=== PATIENT | female | born 1985 | race Caucasian/White ===

== ENCOUNTER 2021-07-03 11:36 | Emergency (ER) | payer MEDICAID, SELFPAY ==
[2021-07-03 11:42] VITALS: BP 126/67; PULSE 76; RESP 18; TEMP 36.1; O2SAT 96; BMI 30.2
[2021-07-03 12:11] LABS: Appearance Urine CLOUDY; Color Urine YELLOW; Glucose Urine UA NEG (NEG); Leukocyte Esterase Urine NEG (NEG); Nitrite Urine NEG (NEG); Urine Blood NEG (NEG); Urine Ketones NEG (NEG); Urine Protein NEG (NEG-TRACE)
[2021-07-03] MEDS: diphenhydrAMINE HCL 25 MG TABLET PO (12:19)
[2021-07-03] MEDS: Famotidine 20 MG TABLET PO (12:19)
[2021-07-03 12:22] LABS: UPreg QC Valid YES; Urine Pregnancy NEGATIVE (NEGATIVE)
[2021-07-03] MEDS: Acetaminophen 325 MG TABLET 650 MG PO (12:27)
--- NOTE | 2021-07-03 12:28 | ED.GENADULT ---
HPI - General Adult General Chief complaint: General Medical Stated complaint: bed bug bites Time Seen by Provider: 07/03/21 11:42 Source: patient Mode of arrival: ambulatory Limitations: no limitations History of Present Illness HPI narrative: 35-year-old female who is currently residing at a [place] [facility] presenting to the ED with concerns for [place]bugs [place] [facility] [place] [facility]. She reports that 1 of the other patients has a daughter and a who visited a few days ago and they had bedbugs and then she went into the other patient's room without knowing and since then she has been itchy. She reports that she believes it is bedbugs. She also has a separate complaint of white milky non odorous discharge over the past few days. She reports she is not sexually active in months. She denies any thoughts of STDs. She denies any other symptoms complaints or concerns at this time. Related Data Previous Rx's Medication Instructions Recorded diphenhydramine HCl 25 mg tablet 50 mg PO TID PRN #10 tab 07/03/21 (Benadryl Allergy) famotidine 20 mg tablet (Pepcid) 20 mg PO BID #10 tab 07/03/21 fluconazole 150 mg tablet 150 mg PO Q3D #2 tab 07/03/21 (Diflucan) hydrocortisone 2.5 % topical 1 appl TOPICAL QD-TID PRN #454 g 07/03/21 ointment metronidazole 500 mg tablet 500 mg PO BID 7 Days #14 tab 07/03/21 (Flagyl) Allergies Allergy/AdvReac Type Severity Reaction Status Date / Time clindamycin Allergy Facial Verified 07/03/21 11:49 Swelling hydromorphone [From Dilaudid] Allergy Eye Verified 07/03/21 11:49 Swelling ibuprofen [From Motrin] Allergy Facial Verified 07/03/21 12:08 Swelling Penicillins Allergy Facial Verified 07/03/21 11:49 Swelling Review of Systems Review of Systems: Constitutional : No Fever, No Chills , no body aches, no recent illness Head/Face: No facial swelling, No facial redness ENT/Mouth : No oral/throat swelling, No Hoarseness, No Swallowing Difficulty Eyes: No Eye Pain, No Swelling, No Redness Cardiovascular : No Chest Pain, No SOB, No palpitations Respiratory : No Cough, No Sputum, No Wheezing, No Smoke Exposure, No Dyspnea Gastrointestinal : No Nausea, No Vomiting, No Diarrhea, No abdominal Pain Genitourinary : No Dysuria, No Urinary Frequency, No Hematuria, positive abnormal discharge, Musculoskeletal : No joint pain, No Myalgias, No Joint Swelling Skin : No Skin Lesions, positive rash Neuro : No Weakness, No Numbness, No Headache, No dizziness, No tingling Psych : No Anxiety/Panic, No Depression Heme/Lymph: No Bruising, No Lymphadenopathy Endocrine : No Polyuria, No Polydipsia Denies changes in lotions or detergents. Denies new medications or any changes in medications. Denies drainage from rash. Denies any recent sick contacts or recent travel. Yes all other systems are reviewed and are negative [facility] Past Medical History Attestation statement: The following information was validated with the patient. Medical History Anxiety Asthma Depression Surgical History H/O Spinal surgery History of hip surgery Social History Social History Advance Directives: No Advance Directives Information Provided: Yes Patient : No Physical Exam Vital Signs: Vital Signs: Last Vital Signs Temp 96.9 F 07/03/21 11:42 Pulse 76 07/03/21 11:42 Resp 18 07/03/21 11:42 BP 126/67 07/03/21 11:42 Pulse Ox 96 07/03/21 11:42 Body Mass Index 30.2 vital signs have been reviewed as normal and appeared to be correct. Blood pressure normal. Heart rate normal. Respiration rate normal. Temperature normal. Oxygen saturation normal. Appearance: Alert. Oriented X3. No acute distress. Head: Normal external exam. Normocephalic. Atraumatic. No Howell signs noted. No raccoon eyes noted Eyes: PERRLA. EOMI. Conjunctiva and sclera normal. Eyelids normal. ENT: EAC normal. TM's Normal. Pharynx normal. Uvula midline. Moist mucous membranes. No trismus noted. No drooling noted. No muffled voice noted. Neck: Normal inspection. Neck supple. FROM. No adenopathy. Thyroid Normal. No meningeal signs. No neck mass noted. CVS: Normal heart rate and rhythm. Heart sound normal. No murmurs noted. Pulses normal throughout. Respiratory: No respiratory distress. Painless inspiration. Breath sounds normal. No wheezes/rales/rhonchi noted. Chest nontender. No accessory muscle usage noted or decreased air movement noted. Abdomen: Soft and nontender. Bowel sounds normal in all 4 quadrants. No distention noted. No organomegaly noted. No visible injury noted. : Supervised by KAYLIN Harmon. Normal external appearance of urethra. No lesions/lacerations or tenderness noted. Speculum exam normal appearance/palpation of vagina normal. Patient has a thin white non odorous vaginal discharge. Otherwise no vaginal erythema. No foreign bodies noted. No vaginal laceration/lesions or active bleeding noted. No tissue present in vagina. No vaginal mass noted. No vaginal swelling noted. No vaginal tenderness noted. Normal appearance of cervix. Normal palpation of cervix. Cervical os is closed. No abnormal cervical discharge noted. No cervical lesion/mass. No Bartholin cyst noted. No cervical motion tenderness noted. Negative chandelier sign. Normal bimanual exam. Uterine size normal. Bladder normal to palpation. Uterine consistency normal. Normal cervical palpation. Uterine mobility normal. Uterine shape normal. Normal adnexa. Normal rectovaginal exam. Back: No CVA tenderness. Full range of motion noted. Skin: Skin warm and dry. Normal skin color. Normal skin turgor. No rashes/lesions/lacerations noted. Extremities: No lower extremity edema. Extremities exhibit normal range of motion. Extremities nontender. Neuro: Oriented X 3. No motor deficit. No sensory deficit. Reflexes normal. Course Course Course Narrative: 35-year-old female currently residing [facility] [place] [facility] presenting to the ED with complaints of possible bedbugs on my exam patient has bites and abrasion is although I do not see any bugs on the patient. I explained to her that she needs to go back to the program and they need to have professionals come in to get rid of the bedbugs if they are in the [place] [facility]. Will also treat her for yeast infection. Pending bacterial vaginosis/Trichomonas/gonorrhea chlamydia will not treat at this time for those. Along with instructions return if any new or worsening symptoms to follow up with primary care provider. Patient understands agrees with this plan. Medical Decision Making Medical Records Medical records reviewed: Yes I reviewed the patient's medical records. Lab Data Lab results reviewed: Yes I reviewed the patient's lab results. Labs: Lab Results 07/03/21 07/03/21 Range/Units 11:59 11:59 Urine Color YELLOW Urine Appearance CLOUDY Urine pH 6.0 (5.0-8.0) Ur Specific [place] 1.020 (1.005-1.025) Urine Protein NEG (NEG-TRACE) MG/DL Urine Glucose (UA) NEG (NEG) MG/DL Urine Ketones NEG (NEG) MG/DL Urine Blood NEG (NEG) Urine Nitrite NEG (NEG) Ur Leukocyte Esterase NEG (NEG) Urine Test NEGATIVE (NEGATIVE) Discharge Plan Discharge Clinical Impression: Bed bug bite, Dulce vaginitis, Bacterial vaginosis Patient Disposition: Home, Self-Care Instructions: Yeast Infection (ED), Bed Bugs (ED) Additional Instructions: You have pending lab results if any are positive you will be contacted. You have to bring in professionals to the [place] [facility] if they are bed bugs. Prescriptions: New fluconazole [Diflucan] 150 mg tablet 150 mg PO Q3D Qty: 2 RF: 0 metronidazole [Flagyl] 500 mg tablet 500 mg PO BID 7 Days Qty: 14 RF: 0 famotidine [Pepcid] 20 mg tablet 20 mg PO BID Qty: 10 RF: 0 diphenhydramine HCl [Benadryl Allergy] 25 mg tablet 50 mg PO TID PRN (Reason: allergic reaction) Qty: 10 RF: 0 hydrocortisone 2.5 % ointment 1 appl topical QD-TID PRN (Reason: skin irritation) Qty: 454 RF: 0 Referrals: Physician,Nonstaff [Primary Care Provider] - 2 days Print Language: Syriac
[2021-07-03 14:11] LABS: CT PCR NOT DETECTED (Not Detect.); NG PCR NOT DETECTED (Not Detect.)
[2021-07-04 09:36] LABS: BV Int Neg Control Negative (Negative); BV Int Pos Control Positive (Positive)
== END 2021-07-03 12:57 | disposition home or self-care (01) ==
PROVIDERS: Physician Assistant Medical; Emergency Provider Emergency Medicine
DX: N76.0 Acute vaginitis (principal); B37.3 Candidiasis of vulva and vagina; T14.8XXA Other injury of unspecified body region, initial encounter; W57.XXXA Bitten or stung by nonvenomous insect and other nonvenomous arthropods, initial encounter; Y93.9 Activity, unspecified; Y92.9 Unspecified place or not applicable; Y99.9 Unspecified external cause status; Z79.899 Other long term (current) drug therapy
CPT/HCPCS: 36415; 81003; 81025; 87480; 87491; 87510; 87591; 87660; 99283; Q0163

== ENCOUNTER 2021-07-22 17:52 | Emergency (ER) | payer MEDICAID, SELFPAY ==
[2021-07-22 18:07] VITALS: BP 124/86; BP 140/80; PULSE 50; PULSE 60; RESP 18; TEMP 37; O2SAT 100; BMI 32.1
--- NOTE | 2021-07-22 18:12 | ECG_ITS ---
Test Reason : PALPITATIONS Blood Pressure : / mmHG Vent. Rate : 050 BPM Atrial Rate : 050 BPM P-R Int : 156 ms QRS Dur : 086 ms QT Int : 460 ms P-R-T Axes : 052 039 057 degrees QTc Int : 419 ms Sinus bradycardia Possible Left atrial enlargement Abnormal ECG No previous ECGs available Referred By: Generic ED Physician Electronically Signed By:ZANDRA VILLANUEVA
--- NOTE | 2021-07-22 21:27 | ED.CHESTPAIN ---
HPI - Chest Pain General Chief Complaint: Chest Pain Stated Complaint: CHEST PAIN X2 WEEKS Time Seen by Provider: 07/22/21 21:27 Source: patient Mode of arrival: ambulatory Limitations: no limitations History of Present Illness HPI narrative: Patient with history of anxiety with recurrent chest pain complaining of chest pain for last 2 weeks off and on with increased anxiety no radiation of pain no nausea no vomiting no shortness of breath Related Data Previous Rx's Medication Instructions Recorded diphenhydramine HCl 25 mg tablet 50 mg PO TID PRN #10 tab 07/03/21 (Benadryl Allergy) famotidine 20 mg tablet (Pepcid) 20 mg PO BID #10 tab 07/03/21 fluconazole 150 mg tablet 150 mg PO Q3D #2 tab 07/03/21 (Diflucan) hydrocortisone 2.5 % topical 1 appl TOPICAL QD-TID PRN #454 g 07/03/21 ointment metronidazole 500 mg tablet 500 mg PO BID 7 Days #14 tab 07/03/21 (Flagyl) lorazepam 1 mg tablet (Ativan) 1 mg PO BEDTIME PRN #7 tab 07/22/21 Allergies Allergy/AdvReac Type Severity Reaction Status Date / Time clindamycin Allergy Facial Verified 07/03/21 11:49 Swelling hydromorphone [From Dilaudid] Allergy Eye Verified 07/03/21 11:49 Swelling ibuprofen [From Motrin] Allergy Facial Verified 07/03/21 12:08 Swelling Penicillins Allergy Facial Verified 07/03/21 11:49 Swelling Review of Systems Review of Systems: Yes all other systems are reviewed and are negative PMFSH Past Medical History Medical History Anxiety Asthma Depression Surgical History H/O Spinal surgery History of hip surgery Social History Social History Advance Directives: No Advance Directives Information Provided: No Patient : No Physical Exam Vital Signs: Vital Signs: Last Vital Signs Temp 98.6 F 07/22/21 18:07 Pulse 50 07/22/21 18:07 Resp 18 07/22/21 18:07 BP 124/86 07/22/21 18:07 Pulse Ox 100 07/22/21 18:07 Body Mass Index 32.1 Appearance: Alert. Oriented X3. No acute distress. Anxious Eyes: PERRLA, No Nystagmus ENT: Pharynx normal. Oral Mucosa moist Neck: Normal inspection. Neck supple. CVS: Normal heart rate and rhythm. Pulses normal. Respiratory: No respiratory distress. Equal air entry bilateral, no wheezing/rales/rhonchi Abdomen: Soft and nontender. Bowel sounds are present, no mass palpable, no CVA tenderness Skin: Skin warm and dry. Normal skin color. Normal skin turgor. Extremities: No lower extremity edema. No calf tenderness Neuro: Oriented X 3. No motor deficit. No sensory deficit.No cerebellar signs , cranial nerves II-XII intact MDM - Chest Pain ECG Data ECG #1: Attestation: I personally reviewed and interpreted this ECG as follows: Interpretation: Sinus bradycardia heart rate 50 beats per minute normal intervals normal axis no acute ST T wave changes impression no ischemia Discharge Plan Discharge Clinical Impression: Atypical chest pain, Anxiety Patient Disposition: Home, Self-Care Instructions: Chest Pain (ED), Anxiety (ED) Additional Instructions: your chest pain is from anxiety Take medication as prescribed and follow with PCP/therapist Prescriptions: New lorazepam [Ativan] 1 mg tablet 1 mg PO BEDTIME PRN (Reason: anxiety) Qty: 7 RF: 0 No Action fluconazole [Diflucan] 150 mg tablet 150 mg PO Q3D Qty: 2 RF: 0 metronidazole [Flagyl] 500 mg tablet 500 mg PO BID 7 Days Qty: 14 RF: 0 famotidine [Pepcid] 20 mg tablet 20 mg PO BID Qty: 10 RF: 0 diphenhydramine HCl [Benadryl Allergy] 25 mg tablet 50 mg PO TID PRN (Reason: allergic reaction) Qty: 10 RF: 0 hydrocortisone 2.5 % ointment 1 appl topical QD-TID PRN (Reason: skin irritation) Qty: 454 RF: 0 Stand Alone Forms: Work/School Release Interventions: ED Discharge Assessment Last Done: 07/22/21 21:56 Discharge Date/Time: 07/22/21 22:10
[2021-07-22] MEDS: LORazepam 1 MG TABLET PO (22:06)
== END 2021-07-22 22:10 | disposition home or self-care (01) ==
PROVIDERS: Emergency Provider Internal Medicine
DX: R07.9 Chest pain, unspecified (principal); R06.02 Shortness of breath; F41.1 Generalized anxiety disorder; F43.0 Acute stress reaction; Z79.899 Other long term (current) drug therapy
CPT/HCPCS: 93005; 99283

== ENCOUNTER 2021-07-31 12:03 | Emergency (ER) | payer MEDICAID, SELFPAY ==
--- NOTE | 2021-07-31 | ECG_ITS ---
Test Reason : BASELINE Blood Pressure : / mmHG Vent. Rate : 081 BPM Atrial Rate : 081 BPM P-R Int : 158 ms QRS Dur : 084 ms QT Int : 390 ms P-R-T Axes : 058 039 055 degrees QTc Int : 453 ms Normal sinus rhythm Possible Left atrial enlargement Borderline ECG When compared with ECG of 22-JUL-2021 18:01, Vent. rate has increased BY 31 BPM Referred By: Generic ED Physician Electronically Signed By:ZANDRA VILLANUEVA
[2021-07-31 12:06] VITALS: BP 132/55; PULSE 95; RESP 16; TEMP 36.5; O2SAT 98; BMI 32.1
--- NOTE | 2021-07-31 12:20 | ED_ITS ---
HPI - Medical Clearance General Chief complaint: Medical Clearance Stated complaint: low bp Time Seen by Provider: 07/31/21 12:20 History of Present Illness HPI Narrative: Patient with history of anxiety comes with prescription from the psychiatrist that she needs an EKG before the per psychiatrist writes a certain medication, she has no other complaints she at this time She does say she gets intermittent anxiety attacks an Ativan is helpful and she requests more Ativan but otherwise denies any chest pain or palpitations or difficulty breathing Related Information Previous Rx's Medication Instructions Recorded diphenhydramine HCl 25 mg tablet 50 mg PO TID PRN #10 tab 07/03/21 (Benadryl Allergy) famotidine 20 mg tablet (Pepcid) 20 mg PO BID #10 tab 07/03/21 fluconazole 150 mg tablet 150 mg PO Q3D #2 tab 07/03/21 (Diflucan) hydrocortisone 2.5 % topical 1 appl TOPICAL QD-TID PRN #454 g 07/03/21 ointment metronidazole 500 mg tablet 500 mg PO BID 7 Days #14 tab 07/03/21 (Flagyl) lorazepam 1 mg tablet (Ativan) 1 mg PO BEDTIME PRN #7 tab 07/22/21 albuterol sulfate 90 mcg/actuation 2 puff INHALATION QID PRN #6.7 g 07/31/21 aerosol inhaler lorazepam 1 mg tablet (Ativan) 1 mg PO BID PRN #7 tab 07/31/21 Allergies Allergy/AdvReac Type Severity Reaction Status Date / Time clindamycin Allergy Facial Verified 07/03/21 11:49 Swelling hydromorphone [From Dilaudid] Allergy Eye Verified 07/03/21 11:49 Swelling ibuprofen [From Motrin] Allergy Facial Verified 07/03/21 12:08 Swelling Penicillins Allergy Facial Verified 07/03/21 11:49 Swelling Review of Systems Review of Systems: Positive for occasional anxiety Negatives are no fever no chills no dizziness or weakness no headache neck pain no chest pain or shortness of breath no abdominal pain no nausea or vomiting no numbness or weakness Yes all other systems are reviewed and are negative [facility] Past Medical History Source: nursing notes reviewed Medical History Anxiety Asthma Depression Surgical History H/O Spinal surgery History of hip surgery Social History Social History Advance Directives: No Advance Directives Information Provided: No Physical Exam Vital Signs: Vital Signs: Last Vital Signs Temp 97.7 F 07/31/21 12:06 Pulse 95 07/31/21 12:06 Resp 16 07/31/21 12:06 BP 132/55 L 07/31/21 12:06 Pulse Ox 98 07/31/21 12:06 Body Mass Index 32.1 General appearance no acute distress Head is normocephalic atraumatic Neck is supple Chest clear to auscultation bilateral Heart no murmur Abdomen soft nontender Extremities full range of motion x4 Course Course Course Narrative: ECG was a normal sinus rhythm with a rate of 81, intervals are normal, there is no ST elevation, no ischemic changes Well-appearing patient is given a prescription for 5 Ativan tablets to use as needed and will follow with her psychiatrist and is given a copy of the EKG Patient is not anxious now , has no suicidal ideation, does not hear voices and is common comfortable Discharge Plan Discharge Clinical Impression: Medication refill Patient Disposition: Home, Self-Care Additional Instructions: I refilled 5 Ativan tablets We gave you a copy of the EKG for your medical provider Follow with her doctor and return any time any worse condition or any concerns Prescriptions: New lorazepam [Ativan] 1 mg tablet 1 mg PO BID PRN (Reason: anxiety) Qty: 7 RF: 0 albuterol sulfate 90 mcg/actuation HFA aerosol inhaler 2 puff inhalation QID PRN (Reason: shortness of breath or wheezing) Qty: 6.7 RF: 0 No Action lorazepam [Ativan] 1 mg tablet 1 mg PO BEDTIME PRN (Reason: anxiety) Qty: 7 RF: 0 fluconazole [Diflucan] 150 mg tablet 150 mg PO Q3D Qty: 2 RF: 0 metronidazole [Flagyl] 500 mg tablet 500 mg PO BID 7 Days Qty: 14 RF: 0 famotidine [Pepcid] 20 mg tablet 20 mg PO BID Qty: 10 RF: 0 diphenhydramine HCl [Benadryl Allergy] 25 mg tablet 50 mg PO TID PRN (Reason: allergic reaction) Qty: 10 RF: 0 hydrocortisone 2.5 % ointment 1 appl topical QD-TID PRN (Reason: skin irritation) Qty: 454 RF: 0 Interventions: ED Discharge Assessment Last Done: 07/31/21 12:41 Discharge Date/Time: 07/31/21 12:43
== END 2021-07-31 12:43 | disposition home or self-care (01) ==
PROVIDERS: Emergency Provider Emergency Medicine
DX: F41.9 Anxiety disorder, unspecified (principal); Z76.0 Encounter for issue of repeat prescription
CPT/HCPCS: 93005; 99283; 99284